=== PATIENT | male | born 1960 | race Caucasian/White ===

== ENCOUNTER 2017-01-14 10:05 | Emergency (ER) | payer SELFPAY ==
[~2017-01-14] VITALS: Ht 175.3 cm; Wt 83.9 kg
[2017-01-14] MEDS ORDERED: ONDANSETRON PF 4 MG/2 ML VIAL. IV ONE (10:30)
[2017-01-14] MEDS ORDERED: fentaNYL PF 250 MCG/5 ML VIAL IV ONE (10:30)
[2017-01-14] MEDS ORDERED: IOHEXOL 300 MG/ML 75 ML VIAL. IV ONE (10:30)
[2017-01-14 10:37] LABS: BASO % 0 % (0-3); EOS # 0.2 x10^3/uL (0.0-0.7); EOS % 3 % (0-3); HEMATOCRIT 38.8 % (39.0-53.0); HEMOGLOBIN 13.6 g/dL (13.0-17.5); LYMPH # 2.6 x10^3/uL (1.0-4.8); LYMPH % 29 % (24-48); MEAN CORPUSCULAR HEMOGLOBIN 32 pg (25-35); MEAN CORPUSCULAR HGB CONC 35 g/dL (31-37); MEAN CORPUSCULAR VOLUME 90 fL (79-100); MONO # 0.7 x10^3/uL (0.0-1.1); MONO % 8 % (0-9); NEUT # 5.4 x10^3uL (1.8-7.7); NEUT % 61 % (31-73); PLATELET COUNT 325 x10^3/uL (140-400); RED BLOOD COUNT 4.31 x10^6/uL (4.30-5.70); RED CELL DISTRIBUTION WIDTH 14.4 % (11.5-14.5); WHITE BLOOD COUNT 8.8 x10^3/uL (4.0-11.0)
[2017-01-14 11:01] LABS: ALBUMIN 3.6 g/dL (3.4-5.0); ALBUMIN/GLOBULIN RATIO 0.8 (1.0-1.7); CALCIUM 8.6 mg/dL (8.5-10.1); CREATININE 1.3 mg/dL (0.7-1.3); GFR 57.1; POTASSIUM 4.3 mmol/L (3.5-5.1); TOTAL BILIRUBIN 0.7 mg/dL (0.2-1.0)
--- NOTE | 2017-01-14 11:22 | RAD ---
Examination: CT head and cervical spine without contrast. History: History of trauma, a wall fell on him, head and neck pain Comparison: None available Technique: Axial CT images of the head was performed without contrast. Axial CT images of the cervical spine was performed without contrast. Coronal and sagittal reformats are performed. PQRS Compliance Statement: One or more of the following individualized dose reduction techniques were utilized for this examination: 1. Automated exposure control 2. Adjustment of the mA and/or kV according to patient size 3. Use of iterative reconstruction technique Findings: There is no evidence of midline shift. There is no acute intracranial bleed or extra axial fluid collection identified. The [place]-white matter differentiation is maintained. Small hypodensity identified in the right basal ganglia likely old infarct. The visualized lateral ventricles, third ventricle, fourth ventricles appropriate for age. The basal cisterns are uneffaced The visualized paranasal sinuses, mastoid air cells are clear Evaluation the cervical spine is limited due to flexed appearance of the cervical spine in the CT gantry. Grossly the vertebral body heights are maintained. There is moderate intervertebral disc height loss identified at C6-C7 vertebral levels with the small anterior osteophyte formation identified at C5, C6, C7 vertebral levels. The bilateral facets are well aligned The lateral masses of C1 are aligned with C2 vertebra. The C2 dens appears intact Mild to moderate intervertebral disc bulge identified at C3-C4, C4-C5, C5-C6, C6-C7 vertebral levels causing mild anterior thecal sac impression. No evidence of prevertebral soft tissue swelling visualized Impression: 1. No acute intracranial findings. 2. No obvious fracture of the cervical spine. However examination of cervical spine is limited due to positioning and flexed appearance of the cervical spine in the CT gantry. Correlate clinically. 3. Moderate degenerative changes cervical spine.
[2017-01-14] MEDS ORDERED: fentaNYL PF 100 MCG/2 ML VIAL IV ONE (11:30)
--- NOTE | 2017-01-14 11:45 | RAD ---
Examination: CT chest with IV contrast History: History of trauma, wall fell on him, left-sided chest pain, shoulder pain Comparison: None available Technique: Axial CT images of the chest were performed with IV contrast. Coronal and sagittal reformats are performed. PQRS Compliance Statement: One or more of the following individualized dose reduction techniques were utilized for this examination: 1. Automated exposure control 2. Adjustment of the mA and/or kV according to patient size 3. Use of iterative reconstruction technique Findings: The visualized thyroid gland grossly appears unremarkable. The central airways are patent. The ascending aorta measures 4.5 cm in transverse dimension likely mild aneurysmal change. The heart size grossly appears unremarkable. Mild coronary artery calcifications. No evidence of pericardial effusion. Mild emphysematous is identified in the right upper lobe of the lung. No evidence of pleural effusion or pneumothorax. Minimal right basilar lung atelectasis. There is nondisplaced fracture of the left scapula at the junction of the spine of the scapula with the infraspinous fossa and supraspinous fossa extending into the supraspinous and infraspinous fossa, best visualized on series 5 image 84. Moderate degenerative changes identified in thoracic spine. The bilateral facets are well aligned. Moderate multilevel degenerative changes of the spine. The visualized liver, spleen grossly appears unremarkable. The visualized pancreas grossly appears unremarkable. Prior surgical changes identified in the small bowel. The bilateral kidneys enhance symmetrically. There is a partially visualized 8.5 mm calculus identified in the right renal pelvis. Impression: 1. Nondisplaced fracture of the left scapula. 2. Minimal bibasal lung atelectasis. Mild emphysematous identified in the right lung. 3. Mild ascending aortic aneurysm measuring 4.5 cm in transverse dimension. 4. Coronary artery calcifications. 5. 8.5 mm partially visualized calculus in the right renal pelvis.
--- NOTE | 2017-01-14 11:48 | RAD ---
Examination: 3 views of the right ankle History: History of trauma Comparison: None available Findings The alignment of the ankle mortise grossly appears unremarkable. Moderate degenerative changes identified in the ankle joint. There is mild soft tissue swelling identified lateral to the lateral malleolus and posterior to the ankle joint likely secondary to soft tissue injury. Tiny bony densities identified distal to the lateral malleolus probably unfused ossicles or due to old avulsion. Examination limited due to osseous demineralization. Impression 1. Mild soft tissue swelling lateral to the lateral malleolus and posterior to the ankle joint likely secondary to soft tissue injury. Tiny bony densities identified distal to the lateral malleolus probably unfused ossicles or due to old avulsion. 2. Moderate degenerative changes ankle joint.
[2017-01-14] MEDS ORDERED: MORPHINE SULFATE 4 MG/ML DISP.SYRIN. IV ONE (12:00)
[2017-01-14] MEDS ORDERED: KETOROLAC 15 MG/ML VIAL. IV ONE (12:00)
[2017-01-14 12:10] VITALS: BP 151/84
--- NOTE | 2017-01-14 15:05 | ED.ADGEN ---
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 Patient was demolishing a 12 foot while which collapsed on top of him. Patient was struck in the head, left shoulder region, and right leg and ankle. He denies LOC, but reports feeling dazed after the incident. Patient ports apical headache, denies neck pain, chest pain, shortness of breath and abdominal pain. Left shoulder pain is worse with palpation and movement. Right ankle is painful and swollen tender to palpation. Patient arrives by private vehicle. Injury occurred just prior to ED arrival. Patient has history of coronary disease, hypertension and diabetes and lives in [place]. Review of Systems Review of Systems ROS as per HPI. Current Medications Current Medications Current Medications Medications (Trade) Dose Ordered Sig/Miguel A Start Time Stop Time Status Last Admin Dose Admin Fentanyl Citrate (Fentanyl 2ml Vial) 100 mcg 1X ONCE 01/14/17 11:30 01/14/17 11:31 DC 01/14/17 11:09 100 MCG Fentanyl Citrate (Fentanyl 5ml Vial) 100 mcg 1X ONCE 01/14/17 10:30 01/14/17 10:31 DC 01/14/17 10:38 100 MCG Iohexol (Omnipaque 300 Mg/ml) 75 ml 1X ONCE 01/14/17 10:30 01/14/17 10:31 DC 01/14/17 11:02 75 ML Ketorolac Tromethamine (Toradol) 15 mg 1X ONCE 01/14/17 12:00 01/14/17 12:30 DC Morphine Sulfate (Morphine 4mg Syringe) 4 mg 1X ONCE 01/14/17 12:00 01/14/17 12:01 DC 01/14/17 12:04 4 MG Ondansetron HCl (Zofran) 4 mg 1X ONCE 01/14/17 10:30 01/14/17 10:31 DC 01/14/17 10:36 4 MG Allergies Allergies Allergies Coded Allergies Type Severity Reaction Last Updated Verified naproxen Allergy Unknown Itching 01/14/17 Yes Physical Exam Physical Exam Constitutional: Well developed, well nourished, no acute distress, non-toxic appearance. [] HENT: Normocephalic, apical scalp tenderness to palpation, bilateral external ears normal, oropharynx moist, no oral exudates, nose normal. [] Eyes: PERRLA, EOMI, conjunctiva normal, no discharge. [] Neck: Normal range of motion, no tenderness, supple, no stridor. [] Cardiovascular:Heart rate regular rhythm, no murmur [] Lungs & Thorax: Left posterior shoulder pain and palpation[] Abdomen: Bowel sounds normal, soft, no tenderness. [] Skin: Warm, dry, no erythema, no rash. [] Back: No tenderness, no CVA tenderness. [] Extremities: Right ankle pain, tenderness and swelling, no gross deformity. [] Neurologic: Alert and oriented X 3, normal motor function, normal sensory function, no focal deficits noted. [] Psychologic: Affect normal, judgement normal, mood normal. [] Current Patient Data Vital Signs Vital Signs Date Time Temp Pulse Resp B/P (MAP) Pulse Ox O2 Delivery O2 Flow Rate FiO2 01/14/17 12:10 70 16 151/84 (106) 97 Room Air 01/14/17 10:08 97.9 Lab Results Laboratory Tests Test 01/14/17 10:24 White Blood Count 8.8 x10^3/uL (4.0-11.0) Red Blood Count 4.31 x10^6/uL (4.30-5.70) Hemoglobin 13.6 g/dL (13.0-17.5) Hematocrit 38.8 % (39.0-53.0) L Mean Corpuscular Volume 90 fL (79-100) Mean Corpuscular Hemoglobin 32 pg (25-35) Mean Corpuscular Hemoglobin Concent 35 g/dL (31-37) Red Cell Distribution Width 14.4 % (11.5-14.5) Platelet Count 325 x10^3/uL (140-400) Neutrophils (%) (Auto) 61 % (31-73) Lymphocytes (%) (Auto) 29 % (24-48) Monocytes (%) (Auto) 8 % (0-9) Eosinophils (%) (Auto) 3 % (0-3) Basophils (%) (Auto) 0 % (0-3) Neutrophils # (Auto) 5.4 x10^3uL (1.8-7.7) Lymphocytes # (Auto) 2.6 x10^3/uL (1.0-4.8) Monocytes # (Auto) 0.7 x10^3/uL (0.0-1.1) Eosinophils # (Auto) 0.2 x10^3/uL (0.0-0.7) Basophils # (Auto) 0.0 x10^3/uL (0.0-0.2) Sodium Level 137 mmol/L (136-145) Potassium Level 4.3 mmol/L (3.5-5.1) Chloride Level 105 mmol/L (98-107) Carbon Dioxide Level 25 mmol/L (21-32) Anion Gap 7 (6-14) Blood Urea Nitrogen 18 mg/dL (8-26) Creatinine 1.3 mg/dL (0.7-1.3) Estimated GFR (Cockcroft-Gault) 57.1 BUN/Creatinine Ratio 14 (6-20) Glucose Level 124 mg/dL (70-99) H Calcium Level 8.6 mg/dL (8.5-10.1) Total Bilirubin 0.7 mg/dL (0.2-1.0) Aspartate Amino Transferase (AST) 56 U/L (15-37) H Alanine Aminotransferase (ALT) 51 U/L (16-63) Alkaline Phosphatase 57 U/L (46-116) Total Protein 8.0 g/dL (6.4-8.2) Albumin 3.6 g/dL (3.4-5.0) Albumin/Globulin Ratio 0.8 (1.0-1.7) L EKG EKG [] Radiology/Procedures Radiology/Procedures [CT head/cervical spine/chest: No intracranial or cervical spine lesion. Nondisplaced left scapular fracture per radiology report Right ankle: Degenerative changes per radiology report] Course & Med Decision Making Course & Med Decision Making Pertinent Labs and Imaging studies reviewed. (See chart for details) [Closed head injury without evidence of intracranial bleed. GCS 15. CT cervical spine unremarkable. Nondisplaced left scapular fracture. Abdomen soft, nontender. Soft tissue swelling only on imaging studies. Patient address. Patient placed in orthopedic splint and instructed to follow-up with local PCP. Typical closed head injury instructions given. Patient verbalizes understanding agreement discharge instructions prior to departure.] Final Impression Final Impression [1. Concussion 2. Nondisplaced left scapular fracture 3. Right ankle sprain] Problems: Dragon Disclaimer Sheri Disclaimer This electronic medical record was generated, in whole or in part, using a voice recognition dictation system. KRYSTLE AMOR DO Jan 14, 2017 15:05
== END 2017-01-14 12:15 | disposition home or self-care (01) ==
LOC: ER 10:05
DX: S06.0X0A Concussion without loss of consciousness, initial encounter (principal); S42.102A Fracture of unspecified part of scapula, left shoulder, initial encounter for closed fracture; S93.401A Sprain of unspecified ligament of right ankle, initial encounter; E11.9 Type 2 diabetes mellitus without complications; I10 Essential (primary) hypertension; Z88.6 Allergy status to analgesic agent; W20.8XXA Other cause of strike by thrown, projected or falling object, initial encounter; Y93.89 Activity, other specified; Y99.8 Other external cause status; Y92.89 Other specified places as the place of occurrence of the external cause
CPT/HCPCS: 29105; 29515; 36415; 70450; 71260; 72125; 73610; 80053; 85025; 96374; 96375; 96376; 99285; J2270; J2405; J3010; Q9967